=== PATIENT | female | born 1980 | race Caucasian/White ===

== ENCOUNTER 2017-03-01 15:57 | Emergency (ER) | payer BC ==
[2017-03-01 16:35] VITALS: BP 142/90
[2017-03-01] MEDS ORDERED: HYDROmorphone 0.5 MG/0.5 ML Syringe IVPUSH ONE (17:43)
--- NOTE | 2017-03-01 17:51 | EDM.PDOC ---
ED HPI GENERAL MEDICAL PROBLEM - General Chief Complaint: Skin Complaint Stated Complaint: R HIP PAIN Time Seen by Provider: 03/01/17 17:12 Source of Information: Reports: Patient History Limitations: Reports: No Limitations - History of Present Illness INITIAL COMMENTS - FREE TEXT/NARRATIVE: patient is a 37-year-old female who presents to the ED with concerns of having a boil to the right lower abdomen/pannus. patient states this started a few days back and has grown increasingly worse since onset. Area is very tender to touch, warm, with no drainage present. There is an area of induration noted. Redness has grown increasingly worse over the past day or so. Pain is a 10 out of 10 currently. She does have a history of similar infections in the past. She denies diagnosis of MRSA but notes her son was diagnosed with MRSA. she did have a extra doxcycline from previous stye infection. She has taken two dosages. States she has a recurrent issue with styes and it was quite swollen and angry thus prompting antibiotic use. She took the doxycycline yesterday and also today. She's taken ibuprofen with no relief. She has applied warm compresses to the affected area with no drainage. Again states area has grown increasingly worse over the past few days. She denies any fever chills, nausea/ vomiting, or any additional complaints. Right Hip Pain Score (Numeric/FACES): 10 - Related Data Allergies Allergy/AdvReac Type Severity Reaction Status Date / Time cefuroxime [From Ceftin] Allergy Anaphylactic Verified 03/01/17 18:44 Shock erythromycin base Allergy Hives Verified 03/01/17 18:44 Penicillins Allergy Hives Verified 03/01/17 16:29 piroxicam Allergy Hives Verified 03/01/17 18:45 Sulfa (Sulfonamide Allergy Hives Verified 03/01/17 18:44 Antibiotics) Home Meds: Home Meds Acetaminophen/HYDROcodone [Somerset 325-5 MG] 1 tab PO Q6H PRN #15 tablet 03/01/17 [Rx] Linezolid 600 mg PO BID #13 tablet 03/01/17 [Rx] Past Medical History HEENT History: Reports: Impaired Vision Other HEENT History: glasses Gastrointestinal History: Reports: Chronic Constipation, Chronic Diarrhea 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 OB/BYN History: PCOS - Past Surgical History HEENT Surgical History: Reports: Tonsillectomy Female Surgical History: Reports: Section Musculoskeletal Surgical History: Reports: Other (See Below) Other Musculoskeletal Surgeries/Procedures:: left elbow surgery with reconstrucion of ulna nerve Social & Family History - Family History Family Medical History: Noncontributory - Tobacco Use Smoking Status *Q: Current Every Day Smoker Years of Tobacco use: 20 Packs/Tins Daily: 0.5 Used Tobacco, but Quit: No - Caffeine Use Caffeine Use: Reports: Energy Drinks, Soda - Recreational Drug Use Recreational Drug Use: No ED ROS GENERAL - Review of Systems Review Of Systems: See Below Constitutional: Denies: Fever, Chills, Malaise, Decreased Appetite GI/Abdominal: Reports: Abdominal Pain Skin: Reports: Erythema (Right lower quadrant pannus region), Lesions (abscess to the right lower quadrant) ED EXAM, SKIN/RASH Exam: See Below Exam Limited By: No Limitations General Appearance: Alert, WD/WN, Mild Distress Ears: Hearing Grossly Normal Nose: Normal Inspection Throat/Mouth: Normal Voice, No Airway Compromise Neck: Normal Inspection, Supple Respiratory/Chest: No Respiratory Distress, Lungs Clear, Normal Breath Sounds, No Accessory Muscle Use Cardiovascular: Normal Peripheral Pulses, Regular Rate, Rhythm, No Murmur GI/Abdominal: Normal Bowel Sounds, Soft, No Organomegaly, No Distention, Other ( obese, large area of erythema to the right lower quadrant with approximately 5cm x 5 cm of induration. Approx. 3 cm area with skin sluffed off. no drainage noted. increased warmth noted. ) Course - Vital Signs Last Recorded V/S: Last Vital Signs Temp 97.2 F 03/01/17 16:30 Pulse 93 03/01/17 16:30 Resp 16 03/01/17 16:30 BP 142/90 H 03/01/17 16:30 Pulse Ox 100 03/01/17 19:14 - Orders/Labs/Meds Orders: Active Orders 24 hr Category Date Time Status CULTURE WOUND [RM] Stat Lab 03/01/17 18:30 Received Labs: Laboratory Tests 03/01/17 03/01/17 Range/Units 16:45 16:45 WBC 10.57 H (3.98-10.04) K/mm3 RBC 4.15 (3.98-5.22) M/mm3 Hgb 11.8 (11.2-15.7) gm/L Hct 36.2 (34.1-44.9) % MCV 87.2 (79.4-94.8) fl MCH 28.4 (25.6-32.2) pg MCHC 32.6 (32.2-35.5) g/dl RDW Std Deviation 42.3 (36.4-46.3) fL Plt Count 220 (182-369) K/mm3 MPV 10.7 (9.4-12.3) fl Neut % (Auto) 68.1 (34.0-71.1) % Lymph % (Auto) 24.3 (19.3-51.7) % Dare % (Auto) 5.2 (4.7-12.5) % Eos % (Auto) 1.8 (0.7-5.8) Baso % (Auto) 0.2 (0.1-1.2) % Neut # (Auto) 7.20 H (1.56-6.13) K/mm3 Lymph # (Auto) 2.57 (1.18-3.74) K/mm3 Dare # (Auto) 0.55 H (0.24-0.36) K/mm3 Eos # (Auto) 0.19 (0.04-0.36) K/mm3 Baso # (Auto) 0.02 (0.01-0.08) K/mm3 Sodium 139 (136-145) mEq/L Potassium 3.8 (3.5-5.1) mEq/L Chloride 104 (98-107) mEq/L Carbon Dioxide 27 (21-32) mEq/L Anion Gap 11.8 (5-15) BUN 10 (7-18) mg/dL Creatinine 1.0 (0.55-1.02) mg/dL Est Cr Clr Drug Dosing 72.81 mL/min Estimated GFR (MDRD) > 60 (>60) mL/min BUN/Creatinine Ratio 10.0 L (14-18) Glucose 168 H (74-106) mg/dL Calcium 9.0 (8.5-10.1) mg/dL Total Bilirubin 0.5 (0.2-1.0) mg/dL AST 20 (15-37) U/L ALT 22 (14-59) U/L Alkaline Phosphatase 70 (46-116) U/L C-Reactive Protein 9.0 H* (<1.0) mg/dL Total Protein 7.5 (6.4-8.2) g/dl Albumin 3.2 L (3.4-5.0) g/dl Globulin 4.3 gm/dL Albumin/Globulin Ratio 0.7 L (1-2) Meds: Medications Discontinued Medications Generic Name Dose Route Start Last Admin Trade Name Maya PRN Reason Stop Dose Admin Hydromorphone HCl 0.5 mg 03/01/17 17:43 03/01/17 17:55 Dilaudid IVPUSH 03/01/17 17:44 0.5 mg ONETIME ONE Administration Lidocaine/Epinephrine 20 ml 03/01/17 18:22 03/01/17 18:33 Xylocaine 1% With Epinephrine 1:100,000 INJECT 03/01/17 18:23 20 ml ONETIME ONE Administration Linezolid 600 mg 03/01/17 18:46 03/01/17 18:53 Zyvox .XX 03/01/17 18:47 600 mg Q12H ONE Administration Trimethoprim/Sulfamethoxazole 1 tab 03/01/17 18:35 Septra Ds PO 03/01/17 18:36 ONETIME ONE - Re-Assessments/Exams Free Text/Narrative Re-Assessment/Exam: Peripheral IV was started with Dilaudid for pain therapy. Initial labs include CBC, chem 14 and CRP. 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 He will see the patient in the E.D. 03/01/17 18:35 Dr. Marie has I&D the abscess. Requests Bactrim antibiotic upon discharge. Will see patient the a.m. for reevaluation. 03/01/17 18:40 Patient reports allergies to minocycline and sulfa drugs. States she develops a rash. Will see about other options. Dr. Marie will speak with pharmacy. 03/01/17 0137 Ordered linezolid 600mg IVP. Patient will require infusions every 12 hours until culture results are available. She'll be discharged home with instructions as documented. 03/01/17 18:55 We did have linezolid 600 mg by mouth. We administered this in the ED. Will discharge patient home with prescription as documented. Departure - Departure Time of Disposition: 18:36 Disposition: Home, Self-Care 01 Condition: Good Clinical Impression: Abscess - Discharge Information Prescriptions: Acetaminophen/HYDROcodone [Somerset 325-5 MG] 1 tab PO Q6H PRN #15 tablet PRN Reason: Pain (Severe 7-10) Linezolid 600 mg PO BID #13 tablet Instructions: Abscess Referrals: Brandi Cervantes PA-C [Primary Care Provider] - Navjot Marie MD [Physician] - 1 Day (Call Dr. Marie's clinic tomorrow morning to schedule appt to be seen later that day. ) Forms: ED Department Discharge Additional Instructions: Contact Dr. Marie's office tomorrow morning to be seen later in the day. take linezolid 600 mg twice a day for 7 days. Antibiotics will be adjusted upon results of blood cultures. For pain take Somerset one tab every 6 hours as instructed. No driving this evening nor while taking the Somerset to the sedative side effects. If you should have any new or worsening symptoms please return back to the ED.
[2017-03-01] MEDS ORDERED: Lidocaine 1% with EPINEPHrine 1:100,000 20 ML MDV INJECT ONE (18:22)
[2017-03-01] MEDS ORDERED: Sulfamethoxazole/Trimethoprim 800-160 MG Tab PO ONE (18:35)
[2017-03-01] MEDS ORDERED: Linezolid 600 MG Tab ONE (18:46)
--- NOTE | 2017-03-02 07:12 | PROC ---
DATE OF OPERATION: 03/01/2017 SURGEON: Navjot Marie MD PREOPERATIVE DIAGNOSIS: Abdominal wall abscess involving the panniculus in the right side of the lower abdomen. POSTOPERATIVE DIAGNOSIS: Abdominal wall abscess involving the panniculus in the right side of the lower abdomen. OPERATION PERFORMED: Incision and drainage, and debridement of an ellipse of skin and incising into the fatty tissue. INDICATION: The patient has had a small pimple there, that developed into an abscess with a large 16 cm area of cellulitis that is quite tender associated with about a quarter-size area of necrosis of the skin. The patient gives this started on Thursday and noted the cellulitis on Thursday and because of pain, came into the emergency room. She denies any chills, fever, nausea, vomiting, indigestion. The patient is in good health and has no problems that would indicate she is a compromised host. She did have a son, about 2 years ago who had MRSA in the bone. DESCRIPTION OF PROCEDURE: After informed consent was obtained, the following procedure was performed. The patient was seen in the emergency room and placed in supine position. The area in question was identified and prepped with Betadine, draped off in a sterile fashion. The area of skin that was necrosis was anesthetized with 1% Xylocaine and this was opened up. Culture was obtained, it was packed open. The incision extended for a short distance into the fatty tissue of about 2 cm. Sterile dressing was placed. She was instructed in care of the wound, warm packs, instructed to take her antibiotics and to see me tomorrow morning and if she worsens to return to the emergency room tonight. ANESTHESIA: ESTIMATED BLOOD LOSS: MMODAL /[id number]
== END 2017-03-01 19:17 | disposition home or self-care (01) ==
LOC: JD.ED 15:57
DX: L02.211 Cutaneous abscess of abdominal wall (principal); F17.210 Nicotine dependence, cigarettes, uncomplicated; Z88.0 Allergy status to penicillin; Z88.2 Allergy status to sulfonamides; Z88.8 Allergy status to other drugs, medicaments and biological substances; Z98.890 Other specified postprocedural states
CPT/HCPCS: 10061; 36415; 80053; 85025; 86140; 87070; 87077; 87186; 96374; 99284; A9270; J1170

== ENCOUNTER 2018-10-14 21:41 | Emergency (ER) | payer BC, OTHER ==
[2018-10-14 21:55] VITALS: BP 136/89
[2018-10-14] MEDS ORDERED: Diphtheria,Pertussis(Acell),Tetanus Vaccine 0.5 ML Syringe IM ONE (22:02)
--- NOTE | 2018-10-14 22:08 | EDM.PDOC ---
ED HPI GENERAL MEDICAL PROBLEM - General Chief Complaint: Laceration Stated Complaint: W/COMP CUT TOP OF HEAD Time Seen by Provider: 10/14/18 21:52 Source of Information: Reports: Patient, RN Notes Reviewed History Limitations: Reports: No Limitations - History of Present Illness INITIAL COMMENTS - FREE TEXT/NARRATIVE: The patient states that she was struck on the top of her head by a box containing objects at work, around 21:00 tonight. No loss of consciousness. Initially, there was no bleeding, however, she reached up to touch the wound, and the wound started to bleed. She states that she would not have come to the ER, but her boss was insistent. The patient is otherwise uninjured. The patient does not recall when her last tetanus vaccination was. The patient's PCP is Marleni Webb. Frontal Head Pain Score (Numeric/FACES): 5 - Related Data Allergies Allergy/AdvReac Type Severity Reaction Status Date / Time cefuroxime [From Ceftin] Allergy Anaphylactic Verified 10/14/18 21:49 Shock erythromycin base Allergy Hives Verified 10/14/18 21:49 Penicillins Allergy Hives Verified 10/14/18 21:49 piroxicam Allergy Hives Verified 10/14/18 21:49 Sulfa (Sulfonamide Allergy Hives Verified 10/14/18 21:49 Antibiotics) Home Meds: Home Meds . 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: Polycystic Ovaries, Endocrine/Metabolic History: Reports: Obesity/BMI 30+ - Past Surgical History HEENT Surgical History: Reports: Adenoidectomy, Oral Surgery (wisdom teeth extraction), Tonsillectomy Female Surgical History: Reports: Section (x 3), Lithotripsy/ESWL ( laser lithotripsy) Neurological Surgical History: Reports: Other (See Below) (Left ulnar nerve relocation) Social & Family History - Family History Family Medical History: Noncontributory - Tobacco Use Smoking Status *Q: Current Every Day Smoker Years of Tobacco use: 22 Packs/Tins Daily: 0.5 Packs/Tins Daily Comment: Down from 1 ppd - Caffeine Use Caffeine Use: Reports: Coffee - Alcohol Use Alcohol Use History: Yes Alcohol Use Frequency: Socially - Recreational Drug Use Recreational Drug Use: Yes Drug Use in Last 12 Months: No Recreational Drug Type: Reports: Marijuana/Hashish (last smoked around 2000) - Living Situation & Occupation Living situation: Reports: , with Spouse, with Family (4 kids) Occupation: Employed ([employer]) ED ROS GENERAL - Review of Systems Review Of Systems: ROS reveals no pertinent complaints other than HPI. ED EXAM, SKIN/RASH Exam: See Below Exam Limited By: No Limitations General Appearance: Alert, WD/WN, No Apparent Distress Eye Exam: Bilateral Eye: EOMI, Normal Inspection Ears: Normal External Exam, Hearing Grossly Normal Nose: Normal Inspection Throat/Mouth: Normal Inspection, Normal Lips, Normal Voice, No Airway Compromise Head: Normocephalic, Other (Mild swelling and erythema to the crown of the patient's scalp, with an approximately 0.5 cm superficial scratch within that area, not bleeding.) Course - Vital Signs Last Recorded V/S: Last Vital Signs Temp 36.6 C 10/14/18 21:50 Pulse 85 10/14/18 21:50 Resp 18 10/14/18 21:50 BP 136/89 10/14/18 21:50 Pulse Ox 98 10/14/18 21:50 - Orders/Labs/Meds Orders: Active Orders 24 hr Category Date Time Status Vaccines to be Administered [RC] PER UNIT ROUTINE Care 10/14/18 22:03 Ordered Diphth,Pertuss(Acell),Tet Vac [Adacel] Med 10/14/18 22:02 Once 0.5 ml IM .ONCE ONE - Re-Assessments/Exams Free Text/Narrative Re-Assessment/Exam: 10/14/18 22:03 On examination of the top of the patient's scalp, I find only an approximately 0.5 cm superficial scratch that is not bleeding and does not require any treatment. There is some associated erythema and very mild swelling to the area. The patient will receive a tetanus vaccination tonight, then be discharged home. Departure - Departure Time of Disposition: 22:04 Disposition: Home, Self-Care 01 Condition: Good Clinical Impression: Cut of scalp - Discharge Information *PRESCRIPTION DRUG MONITORING PROGRAM REVIEWED*: Not Applicable *COPY OF PRESCRIPTION DRUG MONITORING REPORT IN PATIENT BECCA: Not Applicable Referrals: Brandi Cervantes PA-C [Primary Care Provider] - Additional Instructions: You were seen in the emergency room after a box fell on your head at work, cutting your scalp. On examination, only a small superficial scratch was found. No treatment was necessary. You were given a tetanus vaccination during your ER visit. You may bathe and shampoo your hair as you ordinarily would. If any other problems, please do not hesitate to return to the ER. - My Orders Last 24 Hours: My Active Orders 10/14/18 22:02 Diphth,Pertuss(Acell),Tet Vac [Adacel] 0.5 ml IM .ONCE ONE 10/14/18 22:03 Vaccines to be Administered [RC] PER UNIT ROUTINE - Assessment/Plan Last 24 Hours: My Active Orders 10/14/18 22:02 Diphth,Pertuss(Acell),Tet Vac [Adacel] 0.5 ml IM .ONCE ONE 10/14/18 22:03 Vaccines to be Administered [RC] PER UNIT ROUTINE
== END 2018-10-14 22:20 | disposition home or self-care (01) ==
LOC: JD.ED 21:41
DX: S01.01XA Laceration without foreign body of scalp, initial encounter (principal); Z23 Encounter for immunization; F17.210 Nicotine dependence, cigarettes, uncomplicated; Z88.1 Allergy status to other antibiotic agents; Z88.0 Allergy status to penicillin; Z88.8 Allergy status to other drugs, medicaments and biological substances; Z88.2 Allergy status to sulfonamides; W22.8XXA Striking against or struck by other objects, initial encounter
CPT/HCPCS: 90471; 90700; 99281; 99282